=== PATIENT | male | born 1990 | race African-American/Black ===

== ENCOUNTER 2019-01-15 00:01 | Emergency (ER) | payer MEDICAID ==
[~2019-01-15] VITALS: Ht 165.1 cm; Wt 64.0 kg
[2019-01-15] MEDS ORDERED: ALBUTEROL (0.083%) 2.5MG/3ML NEB HHN STA ×2 (00:35→03:12)
[2019-01-15] MEDS ORDERED: METHYLPREDNISOLONE SOD SUCC 125 MG/2 ML VIAL IV STA (00:35)
[2019-01-15] MEDS ORDERED: IPRATROPIUM BROMIDE (0.02%) 0.5MG/2.5ML NEB HHN STA ×2 (00:35→03:12)
[2019-01-15] MEDS ORDERED: SODIUM CHLORIDE 0.9% 1,000 ML IV ONE (00:45)
[2019-01-15 04:36] VITALS: BP 125/70
== END 2019-01-15 04:39 | disposition home or self-care (01) ==
LOC: ER 00:01
DX: J45.901 Unspecified asthma with (acute) exacerbation (principal); F12.10 Cannabis abuse, uncomplicated; F17.200 Nicotine dependence, unspecified, uncomplicated
CPT/HCPCS: 71045; 93005; 94640; 96374; 99284; J2930; J7030; J7611; Z7610